=== PATIENT | male | born 1980 | race African-American/Black ===

== ENCOUNTER 2016-07-21 12:34 | Inpatient (IN) | payer MEDICARE, MEDICAID ==
[~2016-07-21] VITALS: Ht 162.6 cm; Wt 54.1 kg
[2016-07-21] MEDS ORDERED: CALCIUM CHLORIDE 100 MG/ML SYR ONE (15:37)
[2016-07-21] MEDS ORDERED: DEXTROSE 50% 50 ML ONE (15:37)
[2016-07-21] MEDS ORDERED: ONDANSETRON 4 MG VIAL ONE (15:50)
[2016-07-21] MEDS ORDERED: BISACODYL EC 5 MG TAB PO PRN (16:40)
[2016-07-21] MEDS ORDERED: ACETAMINOPHEN 325 MG TAB PO PRN (16:40)
[2016-07-21] MEDS ORDERED: DEXTROSE 50% SYRINGE 50 ML IV PRN (16:40)
[2016-07-21] MEDS ORDERED: DEXTROSE 10% 1,000 ML IV SCH (16:40)
[2016-07-21] MEDS ORDERED: BISACODYL 10 MG SUPP RECTAL PRN (16:40)
[2016-07-21] MEDS: NEB-ALBUTEROL 2.5 MG/3 ML INH SCH ×3 (16:40→23:57)
[2016-07-21] MEDS ORDERED: ONDANSETRON 4 MG VIAL IV PRN ×3 (16:40→18:25)
[2016-07-21] MEDS ORDERED: ALU/MAG/SIM 30 ML UDC PO PRN (16:40)
[2016-07-21] MEDS ORDERED: MAG HYDROX 30 ML UDC PO PRN (16:40)
[2016-07-21] MEDS ORDERED: GLUCAGON 1 MG VIAL IM PRN (16:40)
[2016-07-21] MEDS ORDERED: NICOTINE 21 MG/24 HR TRANSDERM PRN (16:40)
[2016-07-21] MEDS ORDERED: CALCIUM CHLORIDE 100 MG/ML SYR IV PUSH ONE ×2 (16:40→18:20)
[2016-07-21] MEDS ORDERED: SOLU-CORTEF 100 MG/2 ML IV ONE (16:55)
[2016-07-21] MEDS ORDERED: DEXTROSE 10% IV SCH (17:00)
[2016-07-21] MEDS ORDERED: SODIUM BICARB 8.4% IV SCH (17:00)
[2016-07-21 17:50] VITALS: BP_SYST 82; BP_SYST 90; RESP 18
[2016-07-21] MEDS: CALCIUM ACETATE 667MG CAP PO SCH (17:50)
[2016-07-21] MEDS ORDERED: ALBUMIN HUMAN 25GM (25%) 100 ML IV PRN ×2 (18:20→18:25)
[2016-07-21] MEDS ORDERED: SODIUM CHLORIDE 0.9% 1,000 ML IV SCH ×2 (18:20→18:25)
[2016-07-21] MEDS ORDERED: SODIUM BICARB 8.4% 100 ML in DEXTROSE 5% 1,000 ML IV SCH (18:20)
[2016-07-21] MEDS ORDERED: SODIUM CHLORIDE 0.9% 1,000 ML IV PRN ×2 (18:20→18:25)
[2016-07-21] MEDS ORDERED: [UNRECOGNIZED DRUG - OTHER] IV ONE (18:35)
[2016-07-21] MEDS ORDERED: SOD CHLOR 0.9% IV ONE (18:35)
[2016-07-21 18:47] VITALS: Ht 162.6 cm; Wt 54.1 kg
[2016-07-21 20:12] VITALS: BP_SYST 98; RESP 16; TEMP 99.9
[2016-07-21] MEDS: KAYEXOLATE 15 GM/60 ML BTL PO SCH (21:16)
[2016-07-21] MEDS: SERTRALINE 50 MG TAB PO SCH (21:17)
[2016-07-21] MEDS: LEVETIRACETAM 500 MG TAB PO SCH (21:17)
[2016-07-21] MEDS: SOD BICARB 650 MG TAB PO SCH (21:19)
[2016-07-21] MEDS: Hydrocortisone 10 MG TAB PO SCH (21:19)
[2016-07-21] MEDS: SODIUM BICARB 8.4% 100 ML in DEXTROSE 5% 1,000 ML IV SCH (23:29)
[2016-07-21 23:35] VITALS: BP_SYST 97; RESP 16; TEMP 97.7
[2016-07-21 23:56] VITALS: RESP 16
[2016-07-22] VITALS (7 sets, daily range): BP systolic 77–101; RESP 16–20; TEMP 97.4–98.6
[2016-07-22] MEDS ORDERED: CATHFLO 2 MG VIAL IV ONE (02:20)
[2016-07-22] MEDS: NEB-ALBUTEROL 2.5 MG/3 ML INH SCH ×6 (02:32→23:26)
[2016-07-22] MEDS: PANTOPRAZOLE 40 MG TAB PO SCH (06:29)
[2016-07-22] MEDS: KAYEXOLATE 15 GM/60 ML BTL PO SCH (09:09)
[2016-07-22] MEDS: CALCIUM ACETATE 667MG CAP PO SCH ×3 (09:10→19:16)
[2016-07-22] MEDS: SERTRALINE 50 MG TAB PO SCH (09:10)
[2016-07-22] MEDS: Hydrocortisone 10 MG TAB PO SCH ×2 (09:10→21:01)
[2016-07-22] MEDS: LEVETIRACETAM 500 MG TAB PO SCH (09:10)
[2016-07-22] MEDS: SOD BICARB 650 MG TAB PO SCH ×2 (09:10→21:01)
[2016-07-22] MEDS ORDERED: hePARIN 1,000 UNITS/ML (PORCINE) 10 ML ONE (21:47)
[2016-07-22] MEDS: SODIUM BICARB 8.4% 100 ML in DEXTROSE 5% 1,000 ML IV SCH (23:26)
[2016-07-23] VITALS (8 sets, daily range): BP systolic 72–120; RESP 14–20; TEMP 97.3–99.2
[2016-07-23] MEDS: SODIUM CHLORIDE 0.9% 1,000 ML IV SCH ×2 (01:15→07:26)
[2016-07-23] MEDS ORDERED: SODIUM CHLORIDE 0.9% 250 ML IV ONE (01:15)
[2016-07-23] MEDS: NEB-ALBUTEROL 2.5 MG/3 ML INH SCH ×4 (02:36→15:00)
[2016-07-23] MEDS: PANTOPRAZOLE 40 MG TAB PO SCH (06:13)
[2016-07-23] MEDS ORDERED: SODIUM CHLORIDE 0.9% 1,000 ML IV ONE (08:20)
[2016-07-23] MEDS: SERTRALINE 50 MG TAB PO SCH (08:39)
[2016-07-23] MEDS: CALCIUM ACETATE 667MG CAP PO SCH ×2 (08:39→12:00)
[2016-07-23] MEDS: SOD BICARB 650 MG TAB PO SCH (08:39)
[2016-07-23] MEDS: LEVETIRACETAM 500 MG TAB PO SCH (08:39)
[2016-07-23] MEDS: Hydrocortisone 10 MG TAB PO SCH (08:40)
[2016-07-23] MEDS: KAYEXOLATE 15 GM/60 ML BTL PO SCH (09:00)
[2016-07-23] MEDS ORDERED: MIDODRINE 10 MG TAB PO SCH (09:20)
[2016-07-23] MEDS ORDERED: KCL CR 20 MEQ TAB PO ONE (10:35)
[2016-07-23] MEDS ORDERED: MIDODRINE 10 MG TAB PO ONE (11:00)
[2016-07-23] MEDS ORDERED: SODIUM CHLORIDE 0.9% 1,000 ML IV SCH (11:00)
[2016-07-23] MEDS ORDERED: SODIUM CHLORIDE 0.9% 1,000 ML IV PRN (11:00)
[2016-07-23] MEDS ORDERED: ONDANSETRON 4 MG VIAL IV PRN (11:00)
[2016-07-23] MEDS ORDERED: ALBUMIN HUMAN 25GM (25%) 100 ML IV PRN (11:00)
[2016-07-23] MEDS ORDERED: hePARIN 1,000 UNITS/ML (PORCINE) 10 ML ONE (15:42)
== END 2016-07-23 17:32 | disposition home health service (06) | DRG 640 ==
LOC: ENRESERVDT → ENRESERVTM → ER 12:34 → EMR 16:52 → ENPENDDIS 16:52 → PCU 18:00
PROVIDERS: ADMIT Family Medicine; ATTEND Family Medicine
PROC: 5A1D60Z (ICD-10-PCS; principal; 2016-07-21)
CPT/HCPCS: 36415; 80048; 80053; 82947; 83036; 83735; 84100; 85025; 93005; 94640; 94799; 99223; 99233; 99239

== ENCOUNTER 2016-07-24 22:00 | Emergency (ER) | payer MEDICARE, MEDICAID ==
[2016-07-25] MEDS ORDERED: DEXTROSE 50% 50 ML ONE (01:42)
== END 2016-07-25 04:20 | disposition home or self-care (01) ==
LOC: ER 22:00
CPT/HCPCS: 36415; 71010; 80047; 82947; 85014; 93005; 96374

== ENCOUNTER 2016-08-06 13:26 | Inpatient (IN) | payer MEDICAID, MEDICARE ==
[~2016-08-06] VITALS: Ht 160 cm; Wt 56.2 kg
[2016-08-06] MEDS ORDERED: HALOPERIDOL 5 MG TAB PO PRN (15:25)
[2016-08-06] MEDS ORDERED: MAG HYDROX 30 ML UDC PO PRN (15:25)
[2016-08-06] MEDS ORDERED: ACETAMINOPHEN 325 MG TAB PO PRN (15:25)
[2016-08-06] MEDS ORDERED: GLUCAGON 1 MG VIAL IM PRN (15:25)
[2016-08-06] MEDS ORDERED: DEXTROSE 50% SYRINGE 50 ML IV PRN (15:25)
[2016-08-06] MEDS ORDERED: ALU/MAG/SIM 30 ML UDC PO PRN (15:25)
[2016-08-06] MEDS ORDERED: TRAZODONE 50 MG TAB PO PRN (15:25)
[2016-08-06] MEDS ORDERED: LORAZEPAM 2 MG TAB PO PRN (15:25)
[2016-08-06] MEDS ORDERED: LORAZEPAM 2 MG/ML VIAL IM PRN (15:25)
[2016-08-06] MEDS ORDERED: HALOPERIDOL 5 MG/ML VIAL IM PRN (15:25)
[2016-08-06] MEDS ORDERED: DIPHENHYDRAMINE 50 MG/ML VIAL IM PRN (15:25)
[2016-08-06 16:31] VITALS: BP_SYST 115; RESP 18; TEMP 98.4
[2016-08-06 16:39] VITALS: Ht 160 cm; Wt 56.2 kg
[2016-08-06] MEDS ORDERED: ONDANSETRON 4 MG VIAL IV PRN (16:50)
[2016-08-06] MEDS ORDERED: ALBUMIN HUMAN 25GM (25%) 100 ML IV PRN (16:50)
[2016-08-06] MEDS ORDERED: SODIUM CHLORIDE 0.9% 1,000 ML IV SCH (16:50)
[2016-08-06] MEDS ORDERED: SODIUM CHLORIDE 0.9% 1,000 ML IV PRN (16:50)
[2016-08-06] MEDS: OLANZAPINE 5 MG TAB PO SCH ×2 (16:50→21:00)
[2016-08-06] MEDS: NICOTINE 21 MG/24 HR TRANSDERM SCH (16:55)
[2016-08-06 19:30] VITALS: BP_SYST 113; RESP 16; TEMP 98.8
[2016-08-06] MEDS ORDERED: OLANZAPINE 5 MG TAB PO SCH (21:00)
[2016-08-06] MEDS: VENLAFAXINE XR 75 MG CAP PO SCH (21:00)
[2016-08-06] MEDS: LEVETIRACETAM 500 MG TAB PO SCH (21:00)
[2016-08-07] VITALS (8 sets, daily range): BP systolic 74–113; RESP 16–18; TEMP 98–98.8
[2016-08-07] MEDS: NICOTINE 21 MG/24 HR TRANSDERM SCH (09:00)
[2016-08-07] MEDS: VENLAFAXINE XR 75 MG CAP PO SCH (09:43)
[2016-08-07] MEDS: LEVETIRACETAM 500 MG TAB PO SCH (09:43)
[2016-08-07] MEDS: OLANZAPINE 5 MG TAB PO SCH ×2 (09:43→20:22)
[2016-08-07] MEDS: MIDODRINE 10 MG TAB PO SCH ×2 (10:40→16:00)
[2016-08-07] MEDS ORDERED: Hydrocortisone 10 MG TAB PO SCH (12:00)
[2016-08-07] MEDS ORDERED: Hydrocortisone 10 MG TAB PO ONE (12:35)
[2016-08-07] MEDS: CALCIUM ACETATE 667MG CAP PO SCH ×2 (13:15→17:00)
[2016-08-07] MEDS: SOD BICARB 650 MG TAB PO SCH ×2 (13:15→20:22)
[2016-08-07] MEDS: FLUDROCORTISONE 0.1 MG TAB PO SCH (13:28)
[2016-08-07] MEDS ORDERED: ALBUMIN HUMAN 25GM (25%) 100 ML IV PRN (15:00)
[2016-08-07] MEDS ORDERED: EPOETIN 2000 UNIT IV SCH (15:00)
[2016-08-07] MEDS ORDERED: SODIUM CHLORIDE 0.9% 1,000 ML IV PRN (15:00)
[2016-08-07] MEDS ORDERED: ONDANSETRON 4 MG VIAL IV PRN (15:00)
[2016-08-07] MEDS ORDERED: SODIUM CHLORIDE 0.9% 1,000 ML IV SCH (15:00)
[2016-08-07] MEDS ORDERED: MISSING DOSE XX ONE (16:00)
[2016-08-07] MEDS: KAYEXOLATE 15 GM/60 ML BTL PO SCH (16:00)
[2016-08-07] MEDS: CALCITRIOL 0.25 MCG CAP PO SCH (16:00)
[2016-08-07] MEDS ORDERED: hePARIN 1,000 UNITS/ML (PORCINE) 10 ML ONE (16:56)
[2016-08-07] MEDS: Hydrocortisone 10 MG TAB PO SCH (20:22)
[2016-08-07] MEDS: PANTOPRAZOLE 20 MG TAB PO SCH (20:22)
[2016-08-08] VITALS (9 sets, daily range): BP systolic 79–147; RESP 16–20; TEMP 97.6–98.7
[2016-08-08] MEDS: MIDODRINE 10 MG TAB PO SCH ×2 (07:35→16:00)
[2016-08-08] MEDS: KAYEXOLATE 15 GM/60 ML BTL PO SCH (09:00)
[2016-08-08] MEDS ORDERED: LOPERAMIDE 2 MG CAPSULE PO PRN (09:15)
[2016-08-08] MEDS ORDERED: ONDANSETRON ODT 4 MG TAB PO PRN (09:15)
[2016-08-08] MEDS: CALCIUM ACETATE 667MG CAP PO SCH ×3 (12:00→19:30)
[2016-08-08] MEDS: VENLAFAXINE XR 75 MG CAP PO SCH (15:20)
[2016-08-08] MEDS: CALCITRIOL 0.25 MCG CAP PO SCH (15:20)
[2016-08-08] MEDS: LEVETIRACETAM 500 MG TAB PO SCH ×2 (15:20→16:45)
[2016-08-08] MEDS: OLANZAPINE 5 MG TAB PO SCH ×2 (15:20→21:00)
[2016-08-08] MEDS: Hydrocortisone 10 MG TAB PO SCH ×2 (15:20→21:00)
[2016-08-08] MEDS: FLUDROCORTISONE 0.1 MG TAB PO SCH (15:20)
[2016-08-08] MEDS: SOD BICARB 650 MG TAB PO SCH ×2 (15:20→21:00)
[2016-08-08] MEDS: NICOTINE 21 MG/24 HR TRANSDERM SCH (15:20)
[2016-08-08] MEDS: PANTOPRAZOLE 20 MG TAB PO SCH (21:00)
[2016-08-09 06:55] VITALS: BP_SYST 85; RESP 16; TEMP 98.5
[2016-08-09] MEDS: MIDODRINE 10 MG TAB PO SCH ×2 (07:29→16:57)
[2016-08-09] MEDS: NICOTINE 21 MG/24 HR TRANSDERM SCH (09:00)
[2016-08-09] MEDS: CALCIUM ACETATE 667MG CAP PO SCH ×3 (09:00→16:57)
[2016-08-09] MEDS: KAYEXOLATE 15 GM/60 ML BTL PO SCH (09:00)
[2016-08-09] MEDS: SOD BICARB 650 MG TAB PO SCH ×2 (09:19→20:29)
[2016-08-09] MEDS: VENLAFAXINE XR 75 MG CAP PO SCH (09:19)
[2016-08-09] MEDS: Hydrocortisone 10 MG TAB PO SCH ×2 (09:19→20:29)
[2016-08-09] MEDS: FLUDROCORTISONE 0.1 MG TAB PO SCH (09:19)
[2016-08-09] MEDS: LEVETIRACETAM 500 MG TAB PO SCH (09:19)
[2016-08-09] MEDS: CALCITRIOL 0.25 MCG CAP PO SCH (09:20)
[2016-08-09] MEDS: OLANZAPINE 5 MG TAB PO SCH ×2 (09:20→20:29)
[2016-08-09 11:00] VITALS: BP_SYST 67; RESP 16
[2016-08-09 11:01] VITALS: BP_SYST 66; RESP 16
[2016-08-09] MEDS ORDERED: Hydrocortisone 10 MG TAB PO ONE (12:50)
[2016-08-09 15:25] VITALS: BP_SYST 80; RESP 16; TEMP 97.8
[2016-08-09 19:00] VITALS: BP_SYST 100; RESP 16; TEMP 97.9
[2016-08-09] MEDS: PANTOPRAZOLE 20 MG TAB PO SCH (20:29)
[2016-08-09 23:30] VITALS: BP_SYST 128; RESP 16
[2016-08-10 06:51] VITALS: BP_SYST 131; RESP 16
[2016-08-10] MEDS: MIDODRINE 10 MG TAB PO SCH ×2 (06:52→16:00)
[2016-08-10] MEDS: SOD BICARB 650 MG TAB PO SCH ×2 (08:55→21:27)
[2016-08-10] MEDS: CALCIUM ACETATE 667MG CAP PO SCH ×3 (08:55→17:15)
[2016-08-10] MEDS: CALCITRIOL 0.25 MCG CAP PO SCH (08:55)
[2016-08-10] MEDS: VENLAFAXINE XR 75 MG CAP PO SCH (08:55)
[2016-08-10] MEDS: FLUDROCORTISONE 0.1 MG TAB PO SCH (08:55)
[2016-08-10] MEDS: NICOTINE 21 MG/24 HR TRANSDERM SCH (08:55)
[2016-08-10] MEDS: LEVETIRACETAM 500 MG TAB PO SCH (08:55)
[2016-08-10] MEDS: OLANZAPINE 5 MG TAB PO SCH ×2 (08:55→21:00)
[2016-08-10] MEDS: Hydrocortisone 10 MG TAB PO SCH ×2 (08:55→21:27)
[2016-08-10] MEDS ORDERED: Hydrocortisone 10 MG TAB PO ONE (09:10)
[2016-08-10 12:43] VITALS: BP_SYST 115; RESP 16
[2016-08-10 16:00] VITALS: BP_SYST 103; RESP 18; TEMP 97.6
[2016-08-10] MEDS: PANTOPRAZOLE 20 MG TAB PO SCH (21:27)
[2016-08-11 00:25] VITALS: BP_SYST 139; RESP 18; TEMP 97.8
[2016-08-11 04:30] VITALS: BP_SYST 115; RESP 18; TEMP 97.5
[2016-08-11 06:32] VITALS: BP_SYST 123; RESP 18; TEMP 97.6
[2016-08-11] MEDS: NICOTINE 21 MG/24 HR TRANSDERM SCH (09:00)
[2016-08-11] MEDS: LEVETIRACETAM 500 MG TAB PO SCH (09:06)
[2016-08-11 10:32] VITALS: BP_SYST 103; RESP 18; TEMP 97.4
[2016-08-11] MEDS: MIDODRINE 10 MG TAB PO SCH ×2 (11:25→17:08)
[2016-08-11] MEDS: CALCIUM ACETATE 667MG CAP PO SCH ×3 (12:00→17:09)
[2016-08-11] MEDS: VENLAFAXINE XR 75 MG CAP PO SCH (14:15)
[2016-08-11] MEDS: CALCITRIOL 0.25 MCG CAP PO SCH (14:15)
[2016-08-11] MEDS: OLANZAPINE 5 MG TAB PO SCH ×2 (14:15→21:30)
[2016-08-11] MEDS: SOD BICARB 650 MG TAB PO SCH ×2 (14:15→21:30)
[2016-08-11] MEDS: FLUDROCORTISONE 0.1 MG TAB PO SCH (14:15)
[2016-08-11] MEDS: Hydrocortisone 10 MG TAB PO SCH ×2 (14:15→21:30)
[2016-08-11 14:38] VITALS: BP_SYST 96; RESP 18; TEMP 97.6
[2016-08-11 19:40] VITALS: BP_SYST 97; RESP 18; TEMP 97.4
[2016-08-11] MEDS: PANTOPRAZOLE 20 MG TAB PO SCH (21:30)
[2016-08-12] MEDS: Hydrocortisone 10 MG TAB PO SCH ×3 (09:00→21:00)
[2016-08-12] MEDS: NICOTINE 21 MG/24 HR TRANSDERM SCH (09:00)
[2016-08-12] MEDS: MIDODRINE 10 MG TAB PO SCH ×2 (09:30→17:05)
[2016-08-12] MEDS: CALCIUM ACETATE 667MG CAP PO SCH ×3 (09:30→17:00)
[2016-08-12] MEDS: SOD BICARB 650 MG TAB PO SCH ×2 (09:40→21:00)
[2016-08-12] MEDS: FLUDROCORTISONE 0.1 MG TAB PO SCH (09:41)
[2016-08-12] MEDS: CALCITRIOL 0.25 MCG CAP PO SCH (09:41)
[2016-08-12] MEDS: VENLAFAXINE XR 75 MG CAP PO SCH (09:41)
[2016-08-12] MEDS: LEVETIRACETAM 500 MG TAB PO SCH (09:41)
[2016-08-12 10:02] VITALS: BP_SYST 94; RESP 16
[2016-08-12] MEDS ORDERED: MISSING DOSE XX ONE (10:35)
[2016-08-12] MEDS: risperiDONE 2 MG TAB PO SCH (12:15)
[2016-08-12 19:21] VITALS: BP_SYST 70; RESP 16; TEMP 98.2
[2016-08-12] MEDS: PANTOPRAZOLE 20 MG TAB PO SCH (21:00)
[2016-08-13 08:00] VITALS: BP_SYST 98; RESP 18; TEMP 97.8
[2016-08-13] MEDS: CALCIUM ACETATE 667MG CAP PO SCH ×3 (08:00→17:00)
[2016-08-13 13:54] VITALS: BP_SYST 97; RESP 18; TEMP 97.5
[2016-08-13] MEDS: risperiDONE 2 MG TAB PO SCH (14:10)
[2016-08-13] MEDS: VENLAFAXINE XR 75 MG CAP PO SCH (14:10)
[2016-08-13] MEDS: SOD BICARB 650 MG TAB PO SCH ×2 (14:10→22:00)
[2016-08-13] MEDS: Hydrocortisone 10 MG TAB PO SCH ×2 (14:10→22:00)
[2016-08-13] MEDS: CALCITRIOL 0.25 MCG CAP PO SCH (14:10)
[2016-08-13] MEDS: FLUDROCORTISONE 0.1 MG TAB PO SCH (14:10)
[2016-08-13] MEDS: LEVETIRACETAM 500 MG TAB PO SCH (14:10)
[2016-08-13] MEDS: NICOTINE 21 MG/24 HR TRANSDERM SCH (14:10)
[2016-08-13] MEDS: MIDODRINE 10 MG TAB PO SCH ×2 (14:10→16:36)
[2016-08-13 14:30] VITALS: BP_SYST 89; RESP 20; TEMP 99.1
[2016-08-13 16:13] VITALS: BP_SYST 68; RESP 16; TEMP 98.4
[2016-08-13] MEDS ORDERED: Hydrocortisone 10 MG TAB PO ONE (16:40)
[2016-08-13 18:30] VITALS: BP_SYST 109; RESP 16; TEMP 98.8
[2016-08-13] MEDS: PANTOPRAZOLE 20 MG TAB PO SCH (22:00)
[2016-08-13] MEDS ORDERED: hePARIN 1,000 UNITS/ML (PORCINE) 10 ML ONE (22:45)
[2016-08-14] MEDS: MIDODRINE 10 MG TAB PO SCH ×2 (07:29→17:00)
[2016-08-14 07:36] VITALS: BP_SYST 85; RESP 18
[2016-08-14] MEDS: SOD BICARB 650 MG TAB PO SCH ×2 (08:40→20:34)
[2016-08-14] MEDS: LEVETIRACETAM 500 MG TAB PO SCH (08:51)
[2016-08-14] MEDS: CALCITRIOL 0.25 MCG CAP PO SCH (08:53)
[2016-08-14] MEDS: risperiDONE 2 MG TAB PO SCH (09:00)
[2016-08-14] MEDS: VENLAFAXINE XR 75 MG CAP PO SCH (09:00)
[2016-08-14] MEDS: NICOTINE 21 MG/24 HR TRANSDERM SCH (09:00)
[2016-08-14] MEDS: Hydrocortisone 10 MG TAB PO SCH ×2 (09:15→20:34)
[2016-08-14] MEDS: FLUDROCORTISONE 0.1 MG TAB PO SCH (09:15)
[2016-08-14 11:57] VITALS: BP_SYST 84; RESP 18
[2016-08-14 15:45] VITALS: BP_SYST 105; RESP 18
[2016-08-14 19:24] VITALS: BP_SYST 96; RESP 18
[2016-08-14] MEDS: CALCIUM ACETATE 667MG CAP PO SCH (19:53)
[2016-08-14] MEDS: PANTOPRAZOLE 20 MG TAB PO SCH (20:34)
[2016-08-15 06:00] VITALS: BP_SYST 94; RESP 18; TEMP 97.5
[2016-08-15] MEDS: MIDODRINE 10 MG TAB PO SCH ×2 (06:08→16:22)
[2016-08-15] MEDS: NICOTINE 21 MG/24 HR TRANSDERM SCH (09:00)
[2016-08-15] MEDS: LEVETIRACETAM 500 MG TAB PO SCH (10:10)
[2016-08-15] MEDS: CALCITRIOL 0.25 MCG CAP PO SCH (13:30)
[2016-08-15] MEDS: FLUDROCORTISONE 0.1 MG TAB PO SCH (13:30)
[2016-08-15] MEDS: Hydrocortisone 10 MG TAB PO SCH ×2 (13:30→20:25)
[2016-08-15] MEDS: SOD BICARB 650 MG TAB PO SCH ×3 (13:30→20:46)
[2016-08-15 14:42] VITALS: BP_SYST 100; RESP 18; TEMP 97.7
[2016-08-15 14:43] VITALS: BP_SYST 90; RESP 18; TEMP 97.9
[2016-08-15] MEDS: DIPHENHYDRAMINE 50 MG CAP PO PRN (16:23)
[2016-08-15] MEDS: FOLIC ACID 400 MCG TAB PO SCH (17:00)
[2016-08-15] MEDS: CYANOCOBA 500 MCG TAB PO SCH (17:30)
[2016-08-15] MEDS: risperiDONE 2 MG TAB PO SCH ×3 (17:56→20:46)
[2016-08-15] MEDS: VENLAFAXINE XR 75 MG CAP PO SCH (17:56)
[2016-08-15 20:15] VITALS: BP_SYST 70; RESP 16
[2016-08-15] MEDS: PANTOPRAZOLE 20 MG TAB PO SCH ×2 (20:25→20:46)
[2016-08-15 22:57] VITALS: BP_SYST 88; RESP 16
[2016-08-16 06:06] VITALS: BP_SYST 113; RESP 16
[2016-08-16 07:41] VITALS: BP_SYST 90; RESP 16; TEMP 97.6
[2016-08-16] MEDS: LEVETIRACETAM 500 MG TAB PO SCH ×2 (10:00→13:30)
[2016-08-16] MEDS: CALCITRIOL 0.25 MCG CAP PO SCH (10:00)
[2016-08-16] MEDS: FOLIC ACID 400 MCG TAB PO SCH ×2 (10:00→13:30)
[2016-08-16] MEDS: MIDODRINE 10 MG TAB PO SCH ×2 (10:00→17:10)
[2016-08-16] MEDS: SOD BICARB 650 MG TAB PO SCH ×3 (10:00→20:39)
[2016-08-16] MEDS: Hydrocortisone 10 MG TAB PO SCH ×3 (10:00→20:39)
[2016-08-16] MEDS: CYANOCOBA 500 MCG TAB PO SCH ×2 (10:00→13:30)
[2016-08-16] MEDS: NICOTINE 21 MG/24 HR TRANSDERM SCH (10:00)
[2016-08-16] MEDS: FLUDROCORTISONE 0.1 MG TAB PO SCH ×2 (10:00→13:30)
[2016-08-16] MEDS ORDERED: HALOPERIDOL 5 MG TAB ONE (10:29)
[2016-08-16] MEDS: HALOPERIDOL 5 MG TAB PO SCH (14:05)
[2016-08-16] MEDS: PANTOPRAZOLE 20 MG TAB PO SCH (20:39)
[2016-08-16 20:47] VITALS: BP_SYST 91; RESP 18; TEMP 98.8
[2016-08-17 08:47] VITALS: BP_SYST 106; RESP 16; TEMP 97.2
[2016-08-17] MEDS ORDERED: HALOPERIDOL 5 MG TAB PO SCH (09:00)
[2016-08-17] MEDS: NICOTINE 21 MG/24 HR TRANSDERM SCH (09:00)
[2016-08-17] MEDS ORDERED: DEXAMETHASONE 0.5 MG TAB PO SCH (09:00)
[2016-08-17] MEDS: MIDODRINE 10 MG TAB PO SCH ×2 (09:02→17:30)
[2016-08-17] MEDS: SOD BICARB 650 MG TAB PO SCH ×2 (09:05→21:51)
[2016-08-17] MEDS: FLUDROCORTISONE 0.1 MG TAB PO SCH (09:05)
[2016-08-17] MEDS: CALCITRIOL 0.25 MCG CAP PO SCH (09:05)
[2016-08-17] MEDS: FOLIC ACID 400 MCG TAB PO SCH (09:05)
[2016-08-17] MEDS: CYANOCOBA 500 MCG TAB PO SCH (09:05)
[2016-08-17] MEDS: LEVETIRACETAM 500 MG TAB PO SCH (09:05)
[2016-08-17] MEDS: HALOPERIDOL 5 MG TAB PO SCH (09:05)
[2016-08-17 19:00] VITALS: BP_SYST 86; RESP 18; TEMP 97
[2016-08-17] MEDS: PANTOPRAZOLE 20 MG TAB PO SCH (21:51)
[2016-08-18] MEDS: MIDODRINE 10 MG TAB PO SCH ×2 (06:33→16:05)
[2016-08-18] MEDS: NICOTINE 21 MG/24 HR TRANSDERM SCH (07:35)
[2016-08-18 12:26] VITALS: BP_SYST 105; RESP 16; TEMP 98.8
[2016-08-18 12:28] VITALS: BP_SYST 105; RESP 16; TEMP 98.8
[2016-08-18] MEDS: SOD BICARB 650 MG TAB PO SCH ×2 (12:44→21:30)
[2016-08-18] MEDS: FOLIC ACID 400 MCG TAB PO SCH (12:44)
[2016-08-18] MEDS: ESCITALOPRAM 10 MG TAB PO SCH (12:45)
[2016-08-18] MEDS: FLUDROCORTISONE 0.1 MG TAB PO SCH (12:45)
[2016-08-18] MEDS: DEXAMETHASONE 0.5 MG TAB PO SCH (12:45)
[2016-08-18] MEDS: HALOPERIDOL 5 MG TAB PO SCH (12:45)
[2016-08-18] MEDS: CYANOCOBA 500 MCG TAB PO SCH (12:45)
[2016-08-18] MEDS: LEVETIRACETAM 500 MG TAB PO SCH (12:45)
[2016-08-18] MEDS: CALCITRIOL 0.25 MCG CAP PO SCH (12:45)
[2016-08-18 13:00] VITALS: BP_SYST 99; RESP 18; TEMP 97.3
[2016-08-18 19:21] VITALS: BP_SYST 84; RESP 16; TEMP 98.5
[2016-08-18] MEDS: PANTOPRAZOLE 20 MG TAB PO SCH (21:30)
[2016-08-19] MEDS: MIDODRINE 10 MG TAB PO SCH ×3 (06:32→15:58)
[2016-08-19] MEDS: NICOTINE 21 MG/24 HR TRANSDERM SCH (08:53)
[2016-08-19] MEDS: LEVETIRACETAM 500 MG TAB PO SCH (08:53)
[2016-08-19] MEDS: CYANOCOBA 500 MCG TAB PO SCH (08:53)
[2016-08-19] MEDS: FLUDROCORTISONE 0.1 MG TAB PO SCH (08:53)
[2016-08-19] MEDS: DEXAMETHASONE 0.5 MG TAB PO SCH (08:53)
[2016-08-19] MEDS: CALCITRIOL 0.25 MCG CAP PO SCH (08:53)
[2016-08-19] MEDS: ESCITALOPRAM 10 MG TAB PO SCH (08:53)
[2016-08-19] MEDS: SOD BICARB 650 MG TAB PO SCH (08:53)
[2016-08-19] MEDS: FOLIC ACID 400 MCG TAB PO SCH (08:53)
[2016-08-19] MEDS: HALOPERIDOL 5 MG TAB PO SCH (08:53)
[2016-08-19 09:25] VITALS: BP_SYST 99; RESP 16; TEMP 97.6
[2016-08-19] MEDS: FAMOTIDINE 20 MG TAB PO SCH ×2 (09:50→21:00)
[2016-08-19] MEDS: CALCIUM CARB 600 MG TAB PO SCH ×2 (15:58→21:00)
[2016-08-19 19:07] VITALS: BP_SYST 96; RESP 16; TEMP 98.3
[2016-08-19] MEDS: PANTOPRAZOLE 20 MG TAB PO SCH (21:00)
[2016-08-19 22:11] VITALS: BP_SYST 109; RESP 16
[2016-08-20] VITALS (7 sets, daily range): BP systolic 100–132; RESP 16–20; TEMP 97.3–97.9
[2016-08-20] MEDS: NICOTINE 21 MG/24 HR TRANSDERM SCH (08:33)
[2016-08-20] MEDS: MIDODRINE 10 MG TAB PO SCH ×2 (08:45→15:57)
[2016-08-20] MEDS: ESCITALOPRAM 10 MG TAB PO SCH (14:34)
[2016-08-20] MEDS: LEVETIRACETAM 500 MG TAB PO SCH (14:34)
[2016-08-20] MEDS: CALCIUM CARB 600 MG TAB PO SCH ×2 (14:34→22:00)
[2016-08-20] MEDS: DEXAMETHASONE 0.5 MG TAB PO SCH (14:34)
[2016-08-20] MEDS: HALOPERIDOL 5 MG TAB PO SCH (14:34)
[2016-08-20] MEDS: FLUDROCORTISONE 0.1 MG TAB PO SCH (14:34)
[2016-08-20] MEDS: FOLIC ACID 400 MCG TAB PO SCH (14:34)
[2016-08-20] MEDS: CYANOCOBA 500 MCG TAB PO SCH (14:35)
[2016-08-20] MEDS: FAMOTIDINE 20 MG TAB PO SCH ×2 (14:35→22:00)
[2016-08-20] MEDS: CALCITRIOL 0.25 MCG CAP PO SCH (14:35)
[2016-08-20] MEDS: PANTOPRAZOLE 20 MG TAB PO SCH (22:00)
[2016-08-21 02:30] VITALS: BP_SYST 120; RESP 18; TEMP 97.4
[2016-08-21 06:33] VITALS: BP_SYST 100; RESP 18; TEMP 98.3
[2016-08-21] MEDS: MIDODRINE 10 MG TAB PO SCH ×2 (06:43→16:04)
[2016-08-21] MEDS: FOLIC ACID 400 MCG TAB PO SCH (08:52)
[2016-08-21] MEDS: CALCIUM CARB 600 MG TAB PO SCH ×2 (08:52→21:07)
[2016-08-21] MEDS: DEXAMETHASONE 0.5 MG TAB PO SCH (08:52)
[2016-08-21] MEDS: CALCITRIOL 0.25 MCG CAP PO SCH (08:52)
[2016-08-21] MEDS: LEVETIRACETAM 500 MG TAB PO SCH (08:52)
[2016-08-21] MEDS: FAMOTIDINE 20 MG TAB PO SCH ×2 (08:52→21:07)
[2016-08-21] MEDS: FLUDROCORTISONE 0.1 MG TAB PO SCH (08:52)
[2016-08-21] MEDS: HALOPERIDOL 5 MG TAB PO SCH ×2 (08:52→21:07)
[2016-08-21] MEDS: CYANOCOBA 500 MCG TAB PO SCH (08:52)
[2016-08-21] MEDS: ESCITALOPRAM 10 MG TAB PO SCH (08:52)
[2016-08-21] MEDS: NICOTINE 21 MG/24 HR TRANSDERM SCH (08:53)
[2016-08-21 10:30] VITALS: BP_SYST 109; RESP 18; TEMP 97.5
[2016-08-21 18:30] VITALS: BP_SYST 98; RESP 16; TEMP 97.6
[2016-08-21] MEDS: DONEPEZIL HCL 5 MG TAB PO SCH (21:06)
[2016-08-21] MEDS: PANTOPRAZOLE 20 MG TAB PO SCH (21:07)
[2016-08-21 22:30] VITALS: BP_SYST 106; RESP 16; TEMP 97.7
[2016-08-22] VITALS (8 sets, daily range): BP systolic 73–108; RESP 16–18; TEMP 97.8–98.2
[2016-08-22] MEDS: MIDODRINE 10 MG TAB PO SCH ×2 (06:46→16:50)
[2016-08-22] MEDS: NICOTINE 21 MG/24 HR TRANSDERM SCH (08:30)
[2016-08-22] MEDS: ESCITALOPRAM 10 MG TAB PO SCH ×2 (14:00→16:57)
[2016-08-22] MEDS: CYANOCOBA 500 MCG TAB PO SCH ×2 (14:00→16:57)
[2016-08-22] MEDS: CALCITRIOL 0.25 MCG CAP PO SCH ×2 (14:00→16:57)
[2016-08-22] MEDS: LEVETIRACETAM 500 MG TAB PO SCH ×2 (14:00→16:57)
[2016-08-22] MEDS: HALOPERIDOL 5 MG TAB PO SCH ×3 (14:00→21:26)
[2016-08-22] MEDS: FAMOTIDINE 20 MG TAB PO SCH ×2 (14:00→21:27)
[2016-08-22] MEDS: FLUDROCORTISONE 0.1 MG TAB PO SCH ×2 (14:00→16:57)
[2016-08-22] MEDS: FOLIC ACID 400 MCG TAB PO SCH ×2 (14:00→16:57)
[2016-08-22] MEDS: DEXAMETHASONE 0.5 MG TAB PO SCH ×2 (14:00→16:57)
[2016-08-22] MEDS: CALCIUM CARB 600 MG TAB PO SCH ×2 (14:00→21:26)
[2016-08-22] MEDS ORDERED: hePARIN 1,000 UNITS/ML (PORCINE) 10 ML ONE (19:23)
[2016-08-22] MEDS: DONEPEZIL HCL 5 MG TAB PO SCH (21:26)
[2016-08-22] MEDS: PANTOPRAZOLE 20 MG TAB PO SCH (21:27)
[2016-08-23] MEDS: DIPHENHYDRAMINE 50 MG CAP PO PRN ×2 (00:03→23:37)
[2016-08-23 05:35] VITALS: BP_SYST 110; RESP 16; TEMP 97.8
[2016-08-23] MEDS: MIDODRINE 10 MG TAB PO SCH ×2 (06:04→15:45)
[2016-08-23] MEDS: NICOTINE 21 MG/24 HR TRANSDERM SCH (09:00)
[2016-08-23 09:38] VITALS: BP_SYST 121; RESP 18; TEMP 97.8
[2016-08-23] MEDS: ESCITALOPRAM 10 MG TAB PO SCH (09:48)
[2016-08-23] MEDS: FOLIC ACID 400 MCG TAB PO SCH (09:48)
[2016-08-23] MEDS: LEVETIRACETAM 500 MG TAB PO SCH (09:48)
[2016-08-23] MEDS: CYANOCOBA 500 MCG TAB PO SCH (09:48)
[2016-08-23] MEDS: DEXAMETHASONE 0.5 MG TAB PO SCH (09:48)
[2016-08-23] MEDS: HALOPERIDOL 5 MG TAB PO SCH ×2 (09:48→20:56)
[2016-08-23] MEDS: CALCITRIOL 0.25 MCG CAP PO SCH (09:48)
[2016-08-23] MEDS: FAMOTIDINE 20 MG TAB PO SCH ×2 (09:48→20:56)
[2016-08-23] MEDS: CALCIUM CARB 600 MG TAB PO SCH ×2 (09:48→20:56)
[2016-08-23] MEDS: FLUDROCORTISONE 0.1 MG TAB PO SCH (09:48)
[2016-08-23 19:42] VITALS: BP_SYST 123; RESP 16; TEMP 98.2
[2016-08-23] MEDS: DONEPEZIL HCL 5 MG TAB PO SCH (20:56)
[2016-08-23] MEDS: PANTOPRAZOLE 20 MG TAB PO SCH (20:56)
[2016-08-23 21:35] VITALS: BP_SYST 112; RESP 18
[2016-08-24] MEDS: MIDODRINE 10 MG TAB PO SCH (07:05)
[2016-08-24] MEDS ORDERED: MISSING DOSE XX ONE (07:30)
[2016-08-24 07:46] VITALS: BP_SYST 125; RESP 18; TEMP 97.5
[2016-08-24] MEDS: HALOPERIDOL 5 MG TAB PO SCH (08:51)
[2016-08-24] MEDS: CALCIUM CARB 600 MG TAB PO SCH (08:51)
[2016-08-24] MEDS: CYANOCOBA 500 MCG TAB PO SCH (08:51)
[2016-08-24] MEDS: ESCITALOPRAM 10 MG TAB PO SCH (08:51)
[2016-08-24] MEDS: FOLIC ACID 400 MCG TAB PO SCH (08:51)
[2016-08-24] MEDS: CALCITRIOL 0.25 MCG CAP PO SCH (08:51)
[2016-08-24] MEDS: FLUDROCORTISONE 0.1 MG TAB PO SCH (08:51)
[2016-08-24] MEDS: NICOTINE 21 MG/24 HR TRANSDERM SCH (08:51)
[2016-08-24] MEDS: LEVETIRACETAM 500 MG TAB PO SCH (08:51)
[2016-08-24] MEDS: FAMOTIDINE 20 MG TAB PO SCH (08:51)
[2016-08-24] MEDS: DEXAMETHASONE 0.5 MG TAB PO SCH (08:51)
[2016-08-24 10:06] VITALS: BP_SYST 125; RESP 18; TEMP 97.5
[2016-08-24 11:46] VITALS: BP_SYST 125; RESP 18; TEMP 97.5
== END 2016-08-24 13:48 | disposition home or self-care (01) | DRG 885 ==
LOC: ENRESERVTM → ENRESERVDT → ER 13:26 → EMR 14:45 → PSY 15:01
PROVIDERS: ADMIT Psychiatry & Neurology Psychiatry; ATTEND Psychiatry & Neurology Psychiatry
PROC: 5A1D60Z (ICD-10-PCS; principal; 2016-08-06)
DX: F33.3 Major depressive disorder, recurrent, severe with psychotic symptoms (principal); D61.818 Other pancytopenia; N18.6 End stage renal disease; F03.90 Unspecified dementia, unspecified severity, without behavioral disturbance, psychotic disturbance, mood disturbance, and anxiety; I12.0 Hypertensive chronic kidney disease with stage 5 chronic kidney disease or end stage renal disease; E27.40 Unspecified adrenocortical insufficiency; E11.22 Type 2 diabetes mellitus with diabetic chronic kidney disease; Z99.2 Dependence on renal dialysis; Z91.15 Patient's noncompliance with renal dialysis; Z79.4 Long term (current) use of insulin; E11.319 Type 2 diabetes mellitus with unspecified diabetic retinopathy without macular edema; E11.40 Type 2 diabetes mellitus with diabetic neuropathy, unspecified; G40.909 Epilepsy, unspecified, not intractable, without status epilepticus; E53.8 Deficiency of other specified B group vitamins; D63.1 Anemia in chronic kidney disease; E03.9 Hypothyroidism, unspecified
CPT/HCPCS: 71010; 80053; 80069; 80320; 82108; 82140; 82607; 82746; 82947; 83036; 83525; 83970; 84100; 84439; 84443; 84681; 85014; 85018; 85025; 99223; 99232; 99233; 99252